=== PATIENT | female | born 1990 | race Caucasian/White ===

== ENCOUNTER 2017-12-25 20:08 | Emergency (ER) | payer MEDICAID ==
[~2017-12-25] VITALS: Ht 172.7 cm; Wt 95.5 kg
[~2017-12-25 20:08] MED LIST: CLIN300C85 PO; FLO0.4C PO; HYDR-565 PO; HYDR-569 PO; NAPR-1154 PO; NO HOME MEDS; ZOF4T PO
[2017-12-25] MEDS ORDERED: HYDR-569 PO (22:10)
[2017-12-25] MEDS ORDERED: ibuprofen tablet 400 MG TABLET PO ONE (22:10)
[2017-12-25] MEDS ORDERED: HYDROcodone/acetaminophen 10/325mg tab PO ONE (22:10)
[2017-12-25 22:26] VITALS: BP 166/88
== END 2017-12-25 22:28 | disposition home or self-care (01) ==
LOC: ER 20:10
DX: K08.89 Other specified disorders of teeth and supporting structures (principal); G89.18 Other acute postprocedural pain; E11.9 Type 2 diabetes mellitus without complications; I50.9 Heart failure, unspecified
CPT/HCPCS: 99283

== ENCOUNTER 2019-02-08 12:18 | Emergency (ER) | payer MEDICAID ==
[~2019-02-08] VITALS: Ht 172.7 cm; Wt 100.0 kg
[~2019-02-08 12:18] MED LIST changes: +CEPH-571 PO; +CLIN-96 PO; -CLIN300C85 PO; +HYDR-4353 PO; +HYDR-4383 PO; -HYDR-565 PO; -HYDR-569 PO
[2019-02-08] MEDS ORDERED: NORE1PAT7 (12:37)
[2019-02-08] MEDS ORDERED: IBUP-1984 PO (13:34)
[2019-02-08] MEDS ORDERED: PENI500T2 PO (13:34)
[2019-02-08 14:25] VITALS: BP 137/79
== END 2019-02-08 14:02 | disposition home or self-care (01) ==
LOC: ER 12:19
DX: K04.7 Periapical abscess without sinus (principal); K02.9 Dental caries, unspecified; Z87.442 Personal history of urinary calculi; Z79.899 Other long term (current) drug therapy
CPT/HCPCS: 41800; 99283

== ENCOUNTER 2020-11-22 19:10 | Emergency (ER) | payer MEDICAID ==
[~2020-11-22] VITALS: Ht 172.7 cm; Wt 91.0 kg
[~2020-11-22 19:10] MED LIST changes: -CEPH-571 PO; -CLIN-96 PO; -FLO0.4C PO; -HYDR-4353 PO; -HYDR-4383 PO; -NAPR-1154 PO; -NO HOME MEDS; +NORE1PAT7; -ZOF4T PO
[2020-11-22 19:18] VITALS: BP 135/88
== END 2020-11-22 20:29 | disposition home or self-care (01) ==
LOC: ER 19:11
DX: J02.9 Acute pharyngitis, unspecified (principal); R09.89 Other specified symptoms and signs involving the circulatory and respiratory systems; R42 Dizziness and giddiness; R05 Cough; F17.200 Nicotine dependence, unspecified, uncomplicated; Z87.442 Personal history of urinary calculi
CPT/HCPCS: 99281

== ENCOUNTER 2021-08-24 11:12 | Emergency (ER) | payer MEDICAID ==
[~2021-08-24] VITALS: Ht 172.7 cm; Wt 85.5 kg
[2021-08-24] MEDS ORDERED: normal saline 1000ML IV soln IVB ONE (15:10)
[2021-08-24] MEDS ORDERED: famotidine/PF 10 mg/ml inj IV ONE (15:10)
[2021-08-24] MEDS ORDERED: methylPREDNISolone sod succ 125mg/2ml vial IV ONE (15:10)
[2021-08-24 15:22] LABS: BASOPHILS % (AUTO) 0.5 % (0-1); EOSINOPHILS % (AUTO) 0.7 % (0-6); HEMATOCRIT 34.4 % (35.0-45.0); HEMOGLOBIN 11.8 g/dl (12.0-16.0); LYMPHOCYTES # (AUTO) 1.7 X10'3 (1.1-4.8); LYMPHOCYTES % (AUTO) 37.6 % (21-51); MEAN CORPUSCULAR HEMOGLOBIN 32.8 PG (27.0-31.0); MEAN CORPUSCULAR HGB CONC 34.3 g/dL (33.0-36.5); MEAN CORPUSCULAR VOLUME 95.4 FL (78-98); MEAN PLATELET VOLUME 7.7 FL (7.4-10.4); MONOCYTES # (AUTO) 0.3 X10'3 (0-0.9); MONOCYTES % (AUTO) 6.3 % (2-12); NEUTROPHILS # (AUTO) 2.6 X10'3 (1.8-7.7); NEUTROPHILS % (AUTO) 54.9 % (42-75); PLATELET COUNT 219 X10'3 (140-440); RED CELL DISTRIBUTION WIDTH 12.7 % (11.5-14.5); WHITE BLOOD COUNT 4.7 X10'3 (4.5-11.0)
[2021-08-24] MEDS ORDERED: ipratropium/albuterol 3ml nebule NEB ONE (15:30)
[2021-08-24 15:35] LABS: D-DIMER 0.35 MG/L FEU (0-0.50)
[2021-08-24 15:37] LABS: ALANINE AMINOTRANSFERASE 17 U/L (12-78); ALBUMIN 3.3 G/DL (3.4-5.0); ALBUMIN/GLOBULIN RATIO 0.8 (1.1-1.5); ALKALINE PHOSPHATASE 83 IU/L (46-116); ANION GAP 9 (8-16); ASPARTATE AMINO TRANSFERASE 15 U/L (10-37); BILIRUBIN,TOTAL 0.4 MG/DL (0.1-1.0); BLOOD UREA NITROGEN 6 MG/DL (7-18); BUN/CREATININE RATIO 10.9 (6.6-38.0); CALCIUM 8.7 MG/DL (8.5-10.1); CHLORIDE 100 MMOL/L (99-107); CREATININE 0.55 MG/DL (0.40-0.90); GLUCOSE 78 MG/DL (70-104); POTASSIUM 3.8 MMOL/L (3.5-5.1); SODIUM 135 MMOL/L (135-145); TOTAL CARBON DIOXIDE 25.6 MMOL/L (24-32); TOTAL PROTEIN 7.7 G/DL (6.4-8.2); eGFR > 90 ML/MIN
[2021-08-24 16:22] LABS: URINE HCG NEGATIVE (NEG)
[2021-08-24 16:27] LABS: CLARITY,URINE CLOUDY (Clear); COLOR,URINE YELLOW (Yellow); GLUCOSE, URINE NEGATIVE (Neg); KETONES,URINE 40 mg/dl (Neg); LEUKOCYTE ESTERASE ,URINE SMALL (Neg); NITRITES, URINE NEGATIVE (Neg); OCCULT BLOOD,URINE NEGATIVE (Neg); PROTEIN,URINE NEGATIVE (Neg); UROBILINOGEN,URINE 0.2 E.U/dL (0.2-1.0)
[2021-08-24 16:34] LABS: MUCUS STRANDS MODERATE /LPF (Neg); SQUAMOUS EPITHELIAL CELL,UR MODERATE /LPF (FEW); UA COLLECTION TYPE CLN CATCH MIDSTREAM
[2021-08-24 16:35] LABS: BACTERIA,URINE FEW /HPF (Neg); RBC,URINE 0-2 /HPF (0-2); WBC,URINE 0-4 /HPF (0-4)
[2021-08-24] MEDS ORDERED: AMOX-117 PO (16:51)
[2021-08-24] MEDS ORDERED: ALBU6.7H9 INH (16:51)
[2021-08-24] MEDS ORDERED: ONDA4TAB12 PO (16:51)
[2021-08-24 17:32] VITALS: BP 124/68
== END 2021-08-24 17:35 | disposition home or self-care (01) ==
LOC: ER 11:12
DX: J45.998 Other asthma (principal); R11.2 Nausea with vomiting, unspecified; Z87.442 Personal history of urinary calculi; Z88.8 Allergy status to other drugs, medicaments and biological substances; Z79.899 Other long term (current) drug therapy
CPT/HCPCS: 36415; 71045; 80053; 81001; 81025; 85025; 85379; 87088; 94640; 96361; 96374; 96375; 99285; J2930; J3490; J7030; 94760

== ENCOUNTER 2022-07-11 15:49 | Emergency (ER) | payer MEDICAID ==
[~2022-07-11] VITALS: Ht 170.2 cm; Wt 75.0 kg
[~2022-07-11 15:49] MED LIST changes: +ALBU6.7H14 INH; +ONDA4TAB12 PO
[2022-07-11 16:15] VITALS: BP 105/74
== END 2022-07-11 19:00 | disposition left against medical advice (07) ==
LOC: ER 15:50
DX: R10.9 Unspecified abdominal pain (principal); R50.9 Fever, unspecified; K21.9 Gastro-esophageal reflux disease without esophagitis; Z87.442 Personal history of urinary calculi; Z90.49 Acquired absence of other specified parts of digestive tract; Z79.899 Other long term (current) drug therapy; Z91.018 Allergy to other foods
CPT/HCPCS: 99281

== ENCOUNTER 2023-03-07 15:36 | Emergency (ER) | payer MEDICAID, OTHER ==
[~2023-03-07] VITALS: Ht 172.7 cm; Wt 88.4 kg
[2023-03-07 16:22] LABS: URINE HCG NEGATIVE (NEG)
[2023-03-07] MEDS ORDERED: ketorolac trometh. 30mg/ml inj. IM ONE (16:45)
[2023-03-07] MEDS ORDERED: IBUP-1985 PO (17:17)
[2023-03-07 17:53] VITALS: BP 130/82; PULSE 81; RESP 18; TEMP 98; O2SAT 99
--- NOTE | 2023-03-07 19:02 | NUR ---
I AGREE WITH THE ASSESSMENT PER Kevin TESFAYE LVN.
== END 2023-03-07 17:57 | disposition home or self-care (01) ==
LOC: ER 15:37
DX: S63.502A Unspecified sprain of left wrist, initial encounter (principal); X58.XXXA Exposure to other specified factors, initial encounter; Y93.89 Activity, other specified; Y92.89 Other specified places as the place of occurrence of the external cause; Y99.8 Other external cause status
CPT/HCPCS: 29125; 73110; 81025; 96372; 99284; J1885